=== PATIENT | female | born 1975 | race African-American/Black ===

== ENCOUNTER 2020-03-19 19:30 | Emergency (ER) | payer OTHER ==
[~2020-03-19] VITALS: Ht 167.6 cm; Wt 79.4 kg
[2020-03-19] MEDS ORDERED: PROCTOCREAM-HC30 GM RECTAL (20:59)
[2020-03-19] MEDS ORDERED: TOPICAINE113 GM TOP (20:59)
[2020-03-19 21:34] VITALS: BP 111/77
== END 2020-03-19 21:37 | disposition home or self-care (01) ==
LOC: ER 19:30
DX: K64.4 Residual hemorrhoidal skin tags (principal); K59.00 Constipation, unspecified